=== PATIENT | male | born 1950 | race Caucasian/White ===

== ENCOUNTER 2025-01-14 14:58 | Emergency (ER) | payer MEDICARE ==
[2025-01-14 16:02] LABS: Hematocrit 38.8 % (42.0-52.0); Hemoglobin 14.2 g/dL (14.0-18.0); Mean Corpuscular Hemoglobin 30.2 pg (27.0-31.0); Mean Corpuscular Volume 82.6 fl (78.0-98.0); Platelet Count 205 10x3/uL (130-400); Red Blood Cell (RBC) Count 4.70 mill/uL (4.70-6.10); White Blood Cell (WBC) Count 6.7 10x3/uL (4.8-10.8)
[2025-01-14 16:16] LABS: ALT (SGPT) 18 U/L (Less than 45); AST (SGOT) 34 U/L (11-34); Albumin 4.4 g/dL (3.1-4.5); Alkaline Phosphatase 79 U/L (40-110); Anion Gap 15 mmol/L (10-20); BUN (Urea Nitrogen) 13 mg/dL (8.4-25.7); Bilirubin, Total 0.8 mg/dL (0.3-1.2); Calc. Creatinine Clearance 0 mL/min (70-130); Calcium 9.9 mg/dL (7.8-10.44); Carbon Dioxide 24 mmol/L (23-31); Chloride 106 mmol/L (98-107); Globulin 3.3 g/dL (2.4-3.5); Glucose 104 mg/dL (83-110); Lipase 119 U/L (8-78); Potassium 2.9 mmol/L (3.5-5.1); Sodium 142 mmol/L (136-145)
[2025-01-14 16:28] LABS: MDiff Complete? YES
[2025-01-14 16:31] LABS: Glucose, Urine (Dipstick) Negative (Negative); Leukocyte Negative (Negative); Protein, Urine (Dipstick) Negative (Neg-Trace); Specific Gravity, Urine 1.010 (1.005-1.030)
[2025-01-14 16:42] LABS: Bacteria/HPF 1+ HPF (None Seen); CAUTI Indications for Culture Pelvic or flank pain; RBC/HPF None Seen HPF (0-3); WBC/HPF 0-3 HPF (0-3)
[2025-01-14 16:43] LABS: Urine Culture Reflex No No
[2025-01-14] MEDS ORDERED: Lidocaine 2% 6 ML (Jelly) SYR ONE (17:16)
== END 2025-01-14 17:48 | disposition home or self-care (01) ==
LOC: BURERS 14:58
DX: R33.9 Retention of urine, unspecified (principal); R79.89 Other specified abnormal findings of blood chemistry; E87.6 Hypokalemia; N13.30 Unspecified hydronephrosis; I10 Essential (primary) hypertension
CPT/HCPCS: 74019; 74177; 80053; 81001; 83690; 85025

== ENCOUNTER 2025-01-17 13:44 | Emergency (ER) | payer MEDICARE | END 2025-01-17 14:07 | disposition home or self-care (01) | LOC: BURERS 13:44 | DX: Z46.6 Encounter for fitting and adjustment of urinary device (principal) ==